=== PATIENT | female | born 1995 | race Caucasian/White ===

== ENCOUNTER → 2021-04-09 | Outpatient (CLI) | payer BC ==
--- NOTE | 2021-04-09 19:55 | RAD ---
Exam: Chest 2 views INDICATION: Short of air, cough for 3 TECHNIQUE: Frontal and lateral views the chest Comparisons: None FINDINGS: The cardiomediastinal silhouette and pulmonary vessels are within normal limits. The lung and pleural spaces are clear. IMPRESSION: No acute cardiopulmonary process. Electronically signed by: Antioen Cortés MD (04/09/2021 7:53 PM) [facility]
== END ==
LOC: RAD 18:53
PROVIDERS: ATTEND Nurse Practitioner Family
DX: R05.8 Other specified cough (principal); R06.02 Shortness of breath
CPT/HCPCS: 71046